=== PATIENT | female | born 1995 ===

== ENCOUNTER 2021-04-09 16:44 | Inpatient (IN) | payer MEDICAID, SELFPAY ==
[2021-04-09 16:44] VITALS: BP 122/78; PULSE 83; RESP 17; TEMP 36.7; O2SAT 98
[2021-04-09 16:47] VITALS: BMI 30.9
[2021-04-09] MEDS: trazodone 50 mg Tablet PO (20:28)
[2021-04-09 20:38] VITALS: BP 122/75; PULSE 102; RESP 20; TEMP 36.9; O2SAT 97
--- NOTE | 2021-04-10 03:40 | PC.ADMIT ---
[address] Admission Note:Patient is a 25 year old female who on 04/03/21 intentionally overdosed on Tylenol (30-35 tabs at 500mg strength) after having an argument with her boyfriend. This is her second attempt and was more severe than the last attempt. When ready to discharge from the hospital she admitted to being depressed and felt if she went home she would try again. Patient takes no medications other than an iron supplement. Patient admits to smoking marijuana on a regular basis. The patient,Ivon Tapia,25 y/o, was given written information regarding hospital policies, unit procedures and contact persons. Patient's smoking status: . Vital Signs - 8 hr 04/09/21 20:38 Temperature 98.5 F Pulse Rate 102 H Respiratory Rate 20 H Blood Pressure 122/75 Pulse Oximetry 97
[2021-04-10 06:00] VITALS: BP 76/45; PULSE 65; RESP 17; TEMP 36.7; O2SAT 97
[2021-04-10] MEDS: ferrous sulfate EC 325 mg Tablet PO (08:19)
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
[2021-04-10] MEDS: escitalopram 10 mg Tablet PO (11:38)
[2021-04-10] MEDS: ARIPiprazole 2 mg Tablet PO (11:38)
[2021-04-10 13:48] VITALS: BP 90/59; PULSE 79; RESP 17; TEMP 36.7; O2SAT 97
[2021-04-10] MEDS: nicotine 2 mg Gum BUCCAL (17:00)
[2021-04-10] MEDS: ondansetron 4 MG Tablet PO (18:01)
[2021-04-10] MEDS: trazodone 50 mg Tablet PO (20:13)
[2021-04-10 20:38] VITALS: BP 119/76; PULSE 77; RESP 16; TEMP 36.6; O2SAT 99
--- NOTE | 2021-04-10 20:59 | PC.NURSE ---
She requested something to help her with sleep. She was given trazadone at 2013
[2021-04-10 22:00] VITALS: BP 119/76; PULSE 77; RESP 16; TEMP 36.6; O2SAT 99
[2021-04-11 06:00] VITALS: BP 105/65; PULSE 62; RESP 16; TEMP 36.8; O2SAT 96
[2021-04-11] MEDS: nicotine 21 mg Patch 1 PATCH TRANSDERMA (08:49)
[2021-04-11] MEDS: ARIPiprazole 2 mg Tablet PO (08:50)
[2021-04-11] MEDS: ferrous sulfate EC 325 mg Tablet PO (08:50)
[2021-04-11] MEDS: escitalopram 10 mg Tablet PO (08:50)
[2021-04-11] MEDS: ondansetron 4 MG Tablet PO (11:47)
[2021-04-11 14:00] VITALS: BP 137/53; PULSE 73; RESP 20; TEMP 36.9; O2SAT 96
[2021-04-11] MEDS: nicotine 4 mg lozenge MUCOUS MEM (17:08)
[2021-04-11] MEDS: ziprasidone hcl 20 mg Capsule PO (17:08)
--- NOTE | 2021-04-11 17:45 | P.NPUPN_ITS ---
Subjective NPU Subjective: Interval history: Patient resents today reporting that she is feeling better since the Lexapro is been started but unfortunately reports that she does not feel the Abilify is helping with that before. She reports having headache and overall feeling that she not getting the stabilizing effect that Abilify has had for her in the past. We discussed the risk benefits and alternatives of initiating Invega and she understood and agreed proceed as documented in this note. Mental Status Exam MSE Comments: This is an obese white female in hospital scrubs with adequate grooming and limited eye contact. Vital movements except for multiple retardation. Cooperative with exam in no acute distress. Speech was decreased rate and volume. Mood describes pretty good affect slightly subdued. Thought process organized. Thought content: Patient denied suicidal or homicidal ideation, there are no delusions reported or noted, she denied any auditory or visual donations. Attention concentration appear intact and memory appeared reliable but none were formally tested. She alert and oriented x3. Insight and judgment appear fair and impulse control appears fair. Vitals/I&O/Wt Last Vital Signs Temp 98.4 F 04/11/21 22:00 Pulse 59 L 04/11/21 22:00 Resp 18 04/11/21 22:00 BP 117/77 04/11/21 22:00 Pulse Ox 96 04/11/21 22:00 A&P Assessment and plan (1) PTSD (post-traumatic stress disorder): Status: Acute (2) Depression: Status: Acute (3) Anxiety: Status: Acute (4) Suicidal behavior with attempted self-injury: Status: Acute Plan This is a 25-year-old female with recent suicide attempt with Tylenol after a argument with her boyfriend.? She has had previous admissions and probably borderline personality disorder Plan: 1.? We started Lexapro 10 mg and will discontinue Abilify and start Invega 3 mg p.o. daily 2.? Continue every 15 minute checks for safety. 3.? Encourage individual, group and milieu therapies. 4.? Encourage sober living treatment after discharge at the highest level of care to which she is willing to commit. Involuntary Hold Information 96 Hour Hold: 96 Hour Involuntary Admission: No Attestations NPU Medical Necessity Statement*: Inpatient hospitalization is medically necessary and the clinically appropriate intervention at this time.? We will initiate medications and make changes as indicated.? Likely length of stay 1-3 days Coding Level of Care Code Acute Contact Center Team Lead for g Fwd Diagnoses PTSD (post-traumatic stress disorder) F43.10 Depression F32.A Anxiety F41.9 Suicidal behavior with attempted self-injury T14.91XA
[2021-04-11] MEDS: OLANZapine 5 mg ODT PO (18:17)
[2021-04-11] MEDS: trazodone 50 mg Tablet PO (20:29)
[2021-04-11 22:00] VITALS: BP 117/77; PULSE 59; RESP 18; TEMP 36.9; O2SAT 96
--- NOTE | 2021-04-12 00:42 | PC.NURSE ---
2035 C/O insomnia trazodone given po. 2135- It was effective.
[2021-04-12 06:00] VITALS: BP 102/58; PULSE 70; RESP 20; TEMP 36.6; O2SAT 99
[2021-04-12] MEDS: ferrous sulfate EC 325 mg Tablet PO (09:57)
[2021-04-12] MEDS: nicotine 21 mg Patch 1 PATCH TRANSDERMA (09:57)
[2021-04-12] MEDS: escitalopram 10 mg Tablet PO (09:57)
[2021-04-12] MEDS: paliperidone ER 3 mg Tablet PO (10:25)
[2021-04-12] MEDS: OLANZapine 5 mg ODT PO (11:41)
[2021-04-12 14:00] VITALS: BP 123/77; PULSE 92; RESP 16; TEMP 36.7; O2SAT 97
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
[2021-04-12 15:12] VITALS: BP 123/77; PULSE 92; RESP 16; TEMP 36.7; O2SAT 97
== END 2021-04-12 15:24 | disposition home or self-care (01) | DRG 918 ==
PROVIDERS: Admitting Provider Psychiatry & Neurology Psychiatry; Visit Provider Psychiatry & Neurology Psychiatry
DX: T39.1X2A Poisoning by 4-Aminophenol derivatives, intentional self-harm, initial encounter (principal); R45.851 Suicidal ideations; F32.A Depression, unspecified; F41.9 Anxiety disorder, unspecified; F43.10 Post-traumatic stress disorder, unspecified; F12.90 Cannabis use, unspecified, uncomplicated; F60.3 Borderline personality disorder
CPT/HCPCS: 97150; 97165; Q0162